=== PATIENT | female | born 1990 | race Caucasian/White ===

== ENCOUNTER → 2018-04-25 | Day surgery (SDC) | payer OTHER ==
[~2018-04-25] MED LIST: BUPIVACA 0.5%/EPI 0.0005%/PF 30 ML VIAL ONE; DEXAMETHASONE 10 MG/ML VIAL ONE; FENTANYL CITR 100 MCG/2 ML ONE; GLYCOPYRROLATE 0.2 MG/ML SYR ONE; HYDROCODONE/APAP 5/325 MG TAB ONE; KETOROLAC 30 MG/ML INJ ONE; MEPERIDINE HCL 25 MG/0.5 ML IV ONE; MEPERIDINE HCL 25 MG/0.5 ML ONE; METOCLOPRAMIDE 10 MG/2mL INJ ONE; NA CHLORIDE 0.9% 1,000 ML ONE; NEOSTIGMINE 1 MG/ML -5 ML SYRINGE ONE; ONDANSETRON 4 MG/2 ML VIAL IV ONE; ONDANSETRON 4 MG/2 ML VIAL ONE; ONDANSETRON HCL 40 MG/20 ML VIAL ONE; PIPER/TAZO/NS 3.375gm 3.375 GM/100 ML BAG ONE; PROMETHAZINE 25 MG/ML VIAL ONE; PROPOFOL 200 MG/20 ML VIAL IV ONE; ROCURONIUM 50 MG/5 ML VIAL IV ONE; Ringers Lactate 1,000 ML IV ONE
[2018-04-25 14:11] LABS: Absolute Lymphocytes (CBC) 1.7 K/uL (0.7-4.9); Absolute Monocytes 0.8 K/uL (0.1-1.3); Absolute Neutrophil 17.8 K/uL (1.8-8.0); Basophils % 0.2 % (0-1.3); Eosinophils % 0.1 % (0-4.4); Hematocrit 40.5 % (36.0-45.0); Lymphocytes % 8.4 % (15.3-44.8); MCH 26.4 pg (27.0-35.0); MCV 79.7 fL (80-100); MPV 8.1 fL (7.6-11.3); Monocytes % 4.1 % (3.3-12.3); RBC Red Blood Cell Count 5.09 M/uL (3.86-4.86)
[2018-04-25 14:20] LABS: ALT/SGPT 48 U/L (12-78); AST/SGOT 24 U/L (15-37); Albumin 3.9 g/dL (3.4-5.0); Alkaline Phosphatase 67 U/L (45-117); BUN Blood Urea Nitrogen 10 mg/dL (7-18); Bicarbonate 25 mmol/L (21-32); Bilirubin Direct < 0.1 mg/dL (0-0.2); Bilirubin Total 0.5 mg/dL (0.2-1.0); Glucose Level 111 mg/dL (74-106); Lipase 121 U/L (73-393); Protein, Total 8.3 g/dL (6.4-8.2); Sodium Level 137 mmol/L (136-145)
[2018-04-25 15:01] LABS: Urine Bacteria 20-50 /HPF (<20); Urine RBC <5 /HPF (NONE SEEN)
[2018-04-25 15:02] LABS: Urine Culture Reflex Order NOT NEEDED; Urine Mucus HEAVY /HPF (NONE SEEN)
--- NOTE | 2018-04-25 15:11 | RAD REPORT ---
EXAM DESCRIPTION: CTAbdomen Pelvis W Contrast - 04/25/2018 2:57 pm CLINICAL HISTORY: Abdominal pain. ABD PAIN COMPARISON: No comparisons TECHNIQUE: Biphasic CT imaging of the abdomen and pelvis was performed with 100 ml non-ionic IV cont rast. All CT scans are performed using dose optimization technique as appropriate and may include automated exposure control or mA/KV adjustment according to patient size. FINDINGS: The lung bases are clear. The liver, spleen, pancreas, adrenal glands and kidneys are within normal limits. No bowel obstruction, free air, free fluid or abscess. The appendix appears dilated and thickened in the RLQ measuring 12 mm with mild periappendiceal fat stranding. No evidence of significant lymphad enopathy. No suspicious bony findings. 3 cm right ovarian follicle seen. IMPRESSION: Acute appendicitis.
--- NOTE | 2018-04-25 15:32 | ER ---
Nurse's Notes [facility] Name: Luisa Agarwal Age: 27 yrs Sex: Female : 1990 Arrival Date: 04/25/2018 Time: 13:23 Bed 16 Private MD: out of town, doctor Diagnosis: Acute appendicitis Presentation: 04/25 13:25 Presenting complaint: Patient states: N/V, sweats and chills started about 0800 this 7 morning. Transition of care: patient was not received from another setting of care. Onset of symptoms was April 25, 2018 at 08:00. Risk Assessment: Do you want to hurt yourself or someone else? Patient reports no desire to harm self or others. Initial Sepsis Screen: Does the patient meet any 2 criteria? No. Patient's initial sepsis screen is negative. Does the patient have a suspected source of infection? No. Patient's initial sepsis screen is negative. Care prior to arrival: None. 13:25 Method Of Arrival: Ambulatory [facility] 13:25 Acuity: WAYNE 3 jl7 [employer]: 13:27 LMP 03/25/2018 [facility] Historical: - Allergies: 13:27 No Known Allergies; jl7 - Home Meds: 13:27 None [Active]; jl7 - PMHx: 13:27 None; jl7 - PSHx: 13:27 None; jl7 - Immunization history:: Adult Immunizations up to date. - Social history:: Smoking status: Patient/guardian denies using tobacco. - Ebola Screening: : No symptoms or risks identified at this time. Screenin:30 Abuse screen: Denies threats or abuse. Nutritional screening: No deficits noted. tw2 Tuberculosis screening: No symptoms or risk factors identified. Fall Risk None identified. Assessment: 13:30 General: Appears in no apparent distress. uncomfortable, Behavior is calm, cooperative, tw2 appropriate for age. Pain: Complains of pain in left lower quadrant and left upper quadrant and suprapubic area and umbilical area. Neuro: Level of Consciousness is awake, alert, obeys commands, Oriented to person, place, time, situation. Cardiovascular: Denies chest pain, shortness of breath, Heart tones S1 S2 Patient's skin is warm and dry. Respiratory: Airway is patent Respiratory effort is even, unlabored, Respiratory pattern is regular, symmetrical, Breath sounds are clear bilaterally. GI: No signs and/or symptoms were reported involving the gastrointestinal system. Bowel sounds present X 4 quads. Abd is soft Reports lower abdominal pain, upper abdominal pain, nausea, Patient currently denies diarrhea. : No signs and/or symptoms were reported regarding the genitourinary system. EENT: No signs and/or symptoms were reported regarding the EENT system. Derm: No signs and/or symptoms reported regarding the dermatologic system. Musculoskeletal: Range of motion: intact in all extremities. 14:43 Reassessment: Patient appears in no apparent distress at this time. Patient and/or tw2 family updated on plan of care and expected duration. Pain level reassessed. Patient is alert, oriented x 3, equal unlabored respirations, skin warm/dry/pink. Patient states feeling better. 15:20 Reassessment: Reassessment: Dr. Charles at bedside at this time. tw2 15:55 Reassessment: Patient appears in no apparent distress at this time. Patient and/or tw2 family updated on plan of care and expected duration. Pain level reassessed. Patient is alert, oriented x 3, equal unlabored respirations, skin warm/dry/pink. Vital Signs: 13:27 BP 128 / 86; Pulse 104; Resp 23; Temp 98.1; Pulse Ox 100% ; Weight 90.72 kg; Height 5 jl7 ft. 3 in. (160.02 cm); Pain 4/10; 14:42 BP 106 / 68; Pulse 109; Resp 17; Pulse Ox 98% on R/A; tw2 15:14 BP 120 / 81; Pulse 106; Resp 18; Pulse Ox 99% on R/A; Pain 0/10; tw2 15:49 BP 122 / 84; Pulse 109; Resp 18; Pulse Ox 99% on R/A; tw2 13:27 Body Mass Index 35.43 (90.72 kg, 160.02 cm) jl7 ED Course: 13:23 Patient arrived in ED. mr 13:23 out of town, doctor is Private Physician. mr 13:27 Triage completed. jl7 13:27 Arm band placed on right wrist. Patient placed in an exam room, on a stretcher. jl7 13:30 Kailee Rodriguez, ROHIT is Primary Nurse. tw2 13:30 Bed in low position. Call light in reach. Adult w/ patient. Pulse ox on. NIBP on. tw2 13:32 Eliezer Charles MD is Attending Physician. wa 13:51 Inserted saline lock: 22 gauge in left antecubital area, using aseptic technique. Blood tw2 collected. 14:18 Notified ED physician of a critical lab result(s). elevated WBC. sg 14:42 Urine Culture Sent. tw2 14:42 Urine Microscopic Only Sent. tw2 14:58 Abdomen In Process Unspecified. EDAZ 15:31 Darnell Gao MD is Hospitalizing Provider. wa 15:50 No provider procedures requiring assistance completed. Patient admitted, IV remains in tw2 place. Administered Medications: 13:58 Drug: NS 0.9% 1000 ml Route: IV; Rate: 1 bolus; Site: left antecubital; tw2 15:48 Follow up: Response: No adverse reaction; IV Status: Completed infusion; IV Intake: tw2 1000ml 13:59 Drug: Zofran 4 mg Route: IVP; Site: left antecubital; tw2 15:18 Follow up: Response: No adverse reaction tw2 14:39 Drug: TORadol 30 mg Route: IVP; Site: left antecubital; tw2 15:18 Follow up: Response: No adverse reaction; Pain is decreased tw2 15:30 Drug: Zosyn 3.375 grams Route: IVPB; Infused Over: 60 mins; Site: left antecubital; tw2 15:49 Follow up: IV Status: Infusion continued upon admission tw2 Intake: 15:48 IV: 1000ml; Total: 1000ml. tw2 Outcome: 15:31 Decision to Hospitalize by Provider. wa 15:54 Admitted to OR accompanied by nurse, via wheelchair, Report called to ROHIT Moran tw2 15:54 Condition: stable 15:54 Instructed on the need for admit. 15:55 Patient left the ED. tw2 Signatures: Dispatcher [employer] EDMS Tanmay Saunders RN ROHIT Taylor Gallegos mr Kailee Rodriguez RN RN 2 Mercedes Omer RN RN jl7 Eliezer Charles MD MD [place] Corrections: (The following items were deleted from the chart) 15:21 14:43 Reassessment: Patient appears in no apparent distress at this time. Patient tw2 and/or family updated on plan of care and expected duration. Pain level reassessed. Patient is alert, oriented x 3, equal unlabored respirations, skin warm/dry/pink. 15: 15:20 Reassessment:
--- NOTE | 2018-04-25 15:33 | EDPHYS ---
Physician Documentation [facility] Name: Luisa Agarwal Age: 27 yrs Sex: Female : 1990 Arrival Date: 04/25/2018 Time: 13:23 Bed 16 Private MD: out of town, doctor ED Physician Eliezer Charles HPI: 04/25 13:47 This 27 yrs old Female presents to ER via Ambulatory with complaints of wa Abdominal Pain, Vomiting. 13:47 The patient presents to the emergency department with nausea, vomiting, 2 times since wa the onset of symptoms, abdominal pain. Onset: The symptoms/episode began/occurred today. Possible causes: unknown. The symptoms are aggravated by nothing. The symptoms are alleviated by nothing. Associated signs and symptoms: Pertinent positives: abdominal pain, nausea, vomiting, Pertinent negatives: constipation, diarrhea, dysuria, fever, GI bleeding, hematuria, vaginal discharge. Severity of symptoms: At their worst the symptoms were moderate in the emergency department the symptoms have improved moderately. The patient has not experienced similar symptoms in the past. The patient has not recently seen a physician. 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 - Social history:: Smoking status: Patient/guardian denies using tobacco. - Ebola Screening: : No symptoms or risks identified at this time. ROS: 13:49 Constitutional: Negative for fever, chills, and weight loss, Eyes: Negative for injury, wa pain, redness, and discharge, ENT: Negative for injury, pain, and discharge, Neck: Negative for injury, pain, and swelling, Cardiovascular: Negative for chest pain, palpitations, and edema, Respiratory: Negative for shortness of breath, cough, wheezing, and pleuritic chest pain, Back: Negative for injury and pain, : Negative for injury, bleeding, discharge, and swelling, MS/Extremity: Negative for injury and deformity, Skin: Negative for injury, rash, and discoloration, Neuro: Negative for headache, weakness, numbness, tingling, and seizure, Psych: Negative for depression, anxiety, suicide ideation, homicidal ideation, and hallucinations. 13:49 Abdomen/GI: Positive for abdominal pain, nausea and vomiting. Exam: 13:48 Constitutional: This is a well developed, well nourished patient who is awake, alert, wa and in no acute distress. Head/Face: Normocephalic, atraumatic. Eyes: Pupils equal round and reactive to light, extra-ocular motions intact. Lids and lashes normal. Conjunctiva and sclera are non-icteric and not injected. Cornea within normal limits. Periorbital areas with no swelling, redness, or edema. ENT: Nares patent. No nasal discharge, no septal abnormalities noted. Tympanic membranes are normal and external auditory canals are clear. Oropharynx with no redness, swelling, or masses, exudates, or evidence of obstruction, uvula midline. Mucous membranes moist. Neck: Trachea midline, no thyromegaly or masses palpated, and no cervical lymphadenopathy. Supple, full range of motion without nuchal rigidity, or vertebral point tenderness. No Meningismus. Chest/axilla: Normal chest wall appearance and motion. Nontender with no deformity. No lesions are appreciated. Cardiovascular: Regular rate and rhythm with a normal S1 and S2. No gallops, murmurs, or rubs. Normal PMI, no JVD. No pulse deficits. Respiratory: Lungs have equal breath sounds bilaterally, clear to auscultation and percussion. No rales, rhonchi or wheezes noted. No increased work of breathing, no retractions or nasal flaring. Back: No spinal tenderness. No costovertebral tenderness. Full range of motion. Skin: Warm, dry with normal turgor. Normal color with no rashes, no lesions, and no evidence of cellulitis. MS/ Extremity: Pulses equal, no cyanosis. Neurovascular intact. Full, normal range of motion. Neuro: Awake and alert, GCS 15, oriented to person, place, time, and situation. Cranial nerves II-XII grossly intact. Motor strength 5/5 in all extremities. Sensory grossly intact. Cerebellar exam normal. Normal gait. Psych: Awake, alert, with orientation to person, place and time. Behavior, mood, and affect are within normal limits. 13:48 Abdomen/GI: Inspection: abdomen appears normal, Bowel sounds: normal, in all quadrants, Palpation: soft, in all quadrants, moderate abdominal tenderness, in the umbilical area, suprapubic area, right upper quadrant, left upper quadrant, right lower quadrant and left lower quadrant. Vital Signs: 13:27 BP 128 / 86; Pulse 104; Resp 23; Temp 98.1; Pulse Ox 100% ; Weight 90.72 kg; Height 5 jl7 ft. 3 in. (160.02 cm); Pain 4/10; 14:42 BP 106 / 68; Pulse 109; Resp 17; Pulse Ox 98% on R/A; tw2 15:14 BP 120 / 81; Pulse 106; Resp 18; Pulse Ox 99% on R/A; Pain 0/10; tw2 15:49 BP 122 / 84; Pulse 109; Resp 18; Pulse Ox 99% on R/A; tw2 13:27 Body Mass Index 35.43 (90.72 kg, 160.02 cm) jl7 MDM: 13:32 Patient medically screened. wa 13:50 Differential diagnosis: abd pain. acute, with assoc vomiting. will work up. will wa reassess. 15:29 Data reviewed: vital signs, nurses notes, lab test result(s), radiologic studies. Test wa interpretation: by ED physician or midlevel provider: labs noted for leukocytosis at 20K. CT abd/pelvis: noted for acute appendicitis. . Response to treatment: the patient's symptoms have markedly improved after treatment. Physician consultation: Darnell Gao MD was called at 15:30. Admission orders: after a detailed discussion of the patient's condition and case, the admit orders are written by me. ED course: received zosyn IV. NPO. acute appy. Dr. Gao to take to OR within the hour. pt and family advised. 04/25 13:47 Order name: Basic Metabolic Panel; Complete Time: 14:33 nh 04/25 13:47 Order name: CBC with Diff 04/25 13:47 Order name: Hepatic Function; Complete Time: 14:37 04/25 13:47 Order name: Lipase; Complete Time: 14:37 04/25 14:38 Order name: Urine Microscopic Only; Complete Time: 15:04 04/25 14:38 Order name: Urine Culture 04/25 14:51 Order name: Urine Dipstick--Ancillary (enter results) 04/25 14:51 Order name: Urine --Ancillary (enter results) 04/25 14:57 Order name: Abdomen ; Complete Time: 15:17 EDMS 04/25 13:47 Order name: IV Saline Lock; Complete Time: 13:51 wa 04/25 13:47 Order name: Labs collected and sent; Complete Time: 13:51 wa 04/25 13:47 Order name: Urine Test (obtain specimen); Complete Time: 14:40 wa 04/25 13:47 Order name: NPO; Complete Time: 13:51 nh 04/25 13:47 Order name: Urine Dipstick-Ancillary (obtain specimen); Complete Time: 14:40 wa Administered Medications: 13:58 Drug: NS 0.9% 1000 ml Route: IV; Rate: 1 bolus; Site: left antecubital; tw2 15:48 Follow up: Response: No adverse reaction; IV Status: Completed infusion; IV Intake: tw2 1000ml 13:59 Drug: Zofran 4 mg Route: IVP; Site: left antecubital; tw2 15:18 Follow up: Response: No adverse reaction tw2 14:39 Drug: TORadol 30 mg Route: IVP; Site: left antecubital; tw2 15:18 Follow up: Response: No adverse reaction; Pain is decreased tw2 15:30 Drug: Zosyn 3.375 grams Route: IVPB; Infused Over: 60 mins; Site: left antecubital; tw2 15:49 Follow up: IV Status: Infusion continued upon admission tw2 Disposition: 04/25/18 15:31 Hospitalization ordered by Darnell Gao for Observation. Preliminary diagnosis is Acute appendicitis. - Bed requested for Operating Room. - Status is Observation. tw2 - Condition is Stable. - Problem is new. - Symptoms have improved. UTI on Admission? No Signatures: Dispatcher [employer] EDMS Kailee Rodriguez RN RN tw2 Mercedes Omer RN RN jl7 Eliezer Charles MD MD [place] Corrections: (The following items were deleted from the chart) 14:57 13:48 Abdomen W/ Con+CT.RAD.BRZ ordered. EDTN EDMS 15:55 15:31 Hospitalization Ordered by Darnell Gao MD for Observation. Preliminary diagnosis tw2 is Acute appendicitis. Bed requested for Operating Room. Status is Observation. Condition is Stable. Problem is new. Symptoms have improved. UTI on Admission? No. wa
--- NOTE | 2018-04-25 17:14 | P.OP ---
Packaging Manager: Keenan Choi Preoperative diagnosis: Acute Appendicitis Postoperative diagnosis: Acute Appendicitis Primary procedure: Laparoscopic Appendectomy Anesthesia: GETA + Local Estimated blood loss: <5cc Specimen: Vermiform Appendix Findings: non-perforated appendicits, enlarged right ovary Complications: None Transferred to: Recovery Room Condition: Good
[2018-04-25 19:32] LABS: Urine Glucose NEGATIVE (NEG)
[2018-04-25 19:33] LABS: Urine Blood NEGATIVE (NEG); Urine Protein NEGATIVE (NEG)
[2018-04-25 20:07] LABS: Blood Morphology Comment NOT SEEN (NOT SEEN); Platelet Estimate ADEQ; Urine White Blood Cell Casts OK
--- NOTE | 2018-04-26 02:07 | OP ---
Date of Procedure: 04/25/2018 Surgeon: Darnell Gao MD, Ultrasound Coordinator: Ashlee Elizondo. Preoperative Diagnosis: Acute appendicitis. Postoperative Diagnosis: Acute appendicitis. Procedure Performed: Laparoscopic appendectomy. Anesthesia: General endotracheal plus local with Marcaine with epinephrine. Estimated Blood Loss: Less than 5 cc. Specimen: Vermiform appendix. Findings: Non-perforated acute appendicitis, enlarged right ovary. Complications: None. Disposition: Transferred to recovery room in good condition. Procedure In Detail: After informed consent was obtained, the patient was brought to the operating r oom, prepped and draped in the usual sterile fashion. After adequate anesthesia was achieved, an inf raumbilical area was anesthetized with Marcaine, sharply incised, and a 5-mm trocar was in troduced in the abdomen without evidence of complication. Insufflation was obtained to 15 mmHg at th is time. The area was inspected for injury to vital structures which was not appreciated at this taisha e. Additional trocar site was chosen in the suprapubic region. This was similarly anesthetized, sha rply incised. A 5-mm trocar was introduced in the abdomen without evidence of complication. The umb ilical trocar was then up-sized to a 12-mm under direct visualization without evidence of complicatio n. Additional trocar site was chosen in the left lower quadrant. This was similarly anesthetized, s harply incised. A 5-mm trocar was introduced in the abdomen without evidence of complication. The p atient was positioned head down, right side up position. Ratcheted grasper was used to grasp the pat ient's appendix and elevated. It was found to be acutely inflamed without evidence of perforation. The mesoappendiceal window was created with the [place] retractor at the confluence of the cecum. A n Endo CRYS 35 blue load was fired across the base of the appendix with good approximation of the tiss ues. The LigaSure device was then used to take the mesoappendix down with good hemostasis. The appe ndix was then placed in EndoCatch bag and removed through the umbilical trocar. Re-insufflation was obtained at this time. The area was inspected for proper hemostasis which was achieved at this time. There was no leakage from the staple line. The area was copiously irrigated, and the pelvis was co piously irrigated multiple times. The adnexa and uterus were both inspected at this time, and they h ave some mild inflammatory fluid present and the right ovary was slightly enlarged, but there were no obvious pathologic findings on the appearance. The abdomen was copiously irrigated multiple times a nd suctioned completely dry. The patient was positioned back in a neutral position and suctioned onc e again until completely dry. The umbilical trocar was then removed and the umbilical trocar site cl osed with a Kavin suture passer using 0 Vicryl in interrupted fashion with good approximati on of tissues. The abdomen was completely desufflated under direct visualization without evidence of complication. All trocars were then removed. All skin incisions were copiously irrigated and close d with a 4-0 Monocryl in a running fashion. Dermabond placed over the top. The patient tolerated th e procedure well without evidence of complication, transferred to the PACU in good condition. All co unts were correct at the end of the case. ANGELA/KATY Voice ID: [id number] Report ID: [id number]
--- NOTE | 2018-04-26 02:45 | HP ---
Date of Admission: 04/25/2018 Brief History Of Present Illness: The patient is a 27-year-old female who presents to the [facility] [place] with abdominal pain beginning earlier today. It was in the mid periumbilical area and now ra diated to the right lower quadrant. It was associated with nausea and vomiting and some chills and s ubjective fevers. She has no change in her bowel or bladder habits. She has never had similar episo zhanna before in the past. She is 3 months from a normal vaginal delivery with no complicati ons of . Her last menstrual period was 03/25/2018. Allergies: NO KNOWN DRUG ALLERGIES. Medications: None. Past Medical History: Negative. Past Surgical History: Negative. Social History: She denies smoking, alcohol, or recreational drug use. She stays at home and has 2 children. Family History: Reviewed, noncontributory. Physical Examination: General: At the time of my examination, she is awake, alert, and oriented. Psychiatric: She is appropriate, conversive. HEENT: She is normocephalic. Sclerae anicteric. Mucous membranes moist. Oropharynx clear. Neck: Supple. No JVD. Chest: Normal expansion, excursion. Cardiovascular: Regular rate and rhythm. Pulmonary: Clear to auscultation bilaterally. Abdomen: Soft with positive right lower quadrant tenderness to palpation. Positive focal peritoniti s. No rebound. No guarding. Extremities: No clubbing, cyanosis, or edema. Skin: Warm and dry. Pelvis: Stable. Laboratory Data: Laboratory exam reveals a white blood cell count of 20.4, hemoglobin is 13.4, hemat ocrit of 40.5, platelet count is 360, neutrophils 87%. Sodium 137, potassium 4.0, chloride 103, carb on dioxide 25, BUN 10, creatinine 0.7, glucose is 111, calcium 9.2, total bilirubin 0.5, direct compo nent 0.1, AST 24, ALT 48, alkaline phosphatase 67, lipase 121. UA shows 5 to 10 white blood cells an d 20 to 50 squamous cells and 20 to 50 bacteria, heavily loaded mucus. CT scan shows official dictat ion of acute appendicitis. The appendix appears thickened and dilated and the right lower quadrant m easuring 12 mm with periappendiceal fat stranding. No evidence of significant lymphadenopathy and co nsistent with an acute appendicitis. Assessment And Plan: A 27-year-old female who presents with signs and symptoms of acute appendicitis with nonperforated appearance: 1.IV fluid hydration. 2.Antibiotic coverage. 3.I have explained the risks, benefits, and alternatives of laparoscopic possible open appendectomy including, but not limited to bleeding, infection, damage to surrounding tissue, need for further ope rating procedures. The patient agreed to proceed as indicated. ANGELA/KATY Voice ID: [id number]
== END | disposition home or self-care (01) ==
LOC: ER 13:21 → OR 15:55
PROVIDERS: ATTEND Surgery
PROC: 0DTJ4ZZ Resection of Appendix, Percutaneous Endoscopic Approach (ICD-10-PCS; principal; 2018-04-25 16:00)
DX: K35.80 Unspecified acute appendicitis (principal)
CPT/HCPCS: 36415; 74177; 80048; 80076; 81003; 81015; 81025; 83690; 85025; 87086; 87088; 88304; 96361; 96365; 96375; 99285; J1100; J2175; J2405; J2543; J2550; J2704; J2710; J2765; J3010; J7030; Q9967

== ENCOUNTER 2018-04-27 21:04 | Emergency (ER) | payer OTHER ==
[2018-04-27] MEDS ORDERED: ONDANSETRON 4 MG/2 ML VIAL ONE (22:06)
[2018-04-27 22:16] LABS: Absolute Lymphocytes (CBC) 5.3 K/uL (0.7-4.9); Absolute Monocytes 0.4 K/uL (0.1-1.3); Absolute Neutrophil 3.8 K/uL (1.8-8.0); Basophils % 0.4 % (0-1.3); Hematocrit 35.3 % (36.0-45.0); MCH 26.8 pg (27.0-35.0); MCV 81.3 fL (80-100); MPV 7.7 fL (7.6-11.3); Monocytes % 4.3 % (3.3-12.3); RBC Red Blood Cell Count 4.34 M/uL (3.86-4.86)
[2018-04-27 22:23] LABS: ALT/SGPT 38 U/L (12-78); AST/SGOT 16 U/L (15-37); Albumin 3.3 g/dL (3.4-5.0); Alkaline Phosphatase 54 U/L (45-117); BUN Blood Urea Nitrogen 11 mg/dL (7-18); Bicarbonate 28 mmol/L (21-32); Bilirubin Total 0.1 mg/dL (0.2-1.0); Glucose Level 115 mg/dL (74-106); Lipase 129 U/L (73-393); Potassium 3.2 mmol/L (3.5-5.1); Sodium Level 140 mmol/L (136-145)
[2018-04-27 22:48] LABS: Blood Morphology Comment NOT SEEN (NOT SEEN); Platelet Estimate ADEQ
--- NOTE | 2018-04-27 23:02 | EDPHYS ---
Physician Documentation [facility] Name: Luisa Agarwal Age: 27 yrs Sex: Female : 1990 Arrival Date: 04/27/2018 Time: 21:06 Bed 17 Private MD: BELINDA DAO ED Physician Satya Morrison HPI: 04/27 22:57 This 27 yrs old Female presents to ER via Ambulatory with complaints of ps1 Vomiting, Post Surgical Pain. 22:57 patient is s/p lap appy by Sima this Tuesday. Patient had some non-specific ps1 abdominal pain and an incident of vomiting. Pain rated as mild. Non-radiating. No fever. Has had some spotting/VB.. 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 - Social history:: Smoking status: Patient/guardian denies using tobacco, Patient uses alcohol, occasionally. - Ebola Screening: : Patient negative for fever greater than or equal to 101.5 degrees Fahrenheit, and additional compatible Ebola Virus Disease symptoms Patient denies exposure to infectious person Patient denies travel to an Ebola-affected area in the 21 days before illness onset No symptoms or risks identified at this time. ROS: 22:57 Constitutional: Negative for fever, chills, and weight loss, Eyes: Negative for injury, ps1 pain, redness, and discharge, Cardiovascular: Negative for chest pain, palpitations, and edema, Respiratory: Negative for shortness of breath, cough, wheezing, and pleuritic chest pain, MS/Extremity: Negative for injury and deformity, Skin: Negative for injury, rash, and discoloration, Neuro: Negative for headache, weakness, numbness, tingling, and seizure. 22:57 Abdomen/GI: Positive for abdominal pain, nausea and vomiting. Exam: 22:57 Constitutional: This is a well developed, well nourished patient who is awake, alert, ps1 and in no acute distress. Head/Face: Normocephalic, atraumatic. Eyes: Pupils equal round and reactive to light, extra-ocular motions intact. Lids and lashes normal. Conjunctiva and sclera are non-icteric and not injected. Cardiovascular: Regular rate and rhythm. No gallops, murmurs, or rubs. Normal PMI, no JVD. No pulse deficits. Respiratory: Lungs have equal breath sounds bilaterally, clear to auscultation and percussion. No rales, rhonchi or wheezes noted. No increased work of breathing, no retractions or nasal flaring. Skin: Warm, dry with normal turgor. Normal color with no rashes, no lesions, and no evidence of cellulitis. MS/ Extremity: Pulses equal, no cyanosis. Neurovascular intact. Full, normal range of motion. Neuro: Awake and alert, GCS 15, oriented to person, place, time, and situation. Cranial nerves II-XII grossly intact. Sensory grossly intact. 22:57 Abdomen/GI: Inspection: abdomen appears normal, scar(s), are noted in the suprapubic area, right lower quadrant and left lower quadrant, c/w recent laproscopy. CDI, Bowel sounds: normal, Palpation: abdomen is soft and non-tender. Vital Signs: 21:09 BP 127 / 85; Pulse 83; Resp 17; Temp 97.9; Pulse Ox 99% on R/A; Weight 90.72 kg; Height aj 5 ft. 3 in. (160.02 cm); 22:32 BP 127 / 86; Pulse 73; Resp 17 S; Pulse Ox 99% on R/A; jd3 21:09 Body Mass Index 35.43 (90.72 kg, 160.02 cm) aj MDM: 21:23 Patient medically screened. ps1 22:57 Data reviewed: vital signs, nurses notes, lab test result(s), radiologic studies, CT ps1 scan, d/w angelitoev, rec's home with levaquin and flagyl. , and as a result, I will discharge patient. 04/27 21:41 Order name: CBC with Diff; Complete Time: 22:54 ps1 04/27 21:41 Order name: Creatinine for Radiology; Complete Time: 22:22 ps1 04/27 21:41 Order name: Lipase; Complete Time: 22:24 ps1 04/27 21:41 Order name: Lactate; Complete Time: 22:24 ps1 04/27 21:41 Order name: CMP; Complete Time: 22:24 ps1 04/27 22:21 Order name: Urine Dipstick--Ancillary (enter results); Complete Time: 23:08 ms 04/27 21:41 Order name: IV Saline Lock; Complete Time: 21:57 ps1 04/27 21:41 Order name: Labs collected and sent; Complete Time: 21:57 ps1 04/27 21:41 Order name: CT Abd/Pelvis - W/Contrast ps1 04/27 22:21 Order name: Urine --Ancillary (enter results); Complete Time: 23:08 ms 04/27 22:22 Order name: Manual Differential; Complete Time: 22:54 EDMS 04/27 22:48 Order name: Slides for Pathologist Review EDMS Administered Medications: 22:28 Drug: Zofran 4 mg Route: IVP; Site: right antecubital; bb 23:11 Follow up: Response: No adverse reaction; Nausea is decreased jd3 Disposition: 04/27/18 23:02 Discharged to Home. Impression: Post operative wound check, Post operative pain. - Condition is Stable. - Discharge Instructions: Pain Relief Preoperatively and Postoperatively. - Prescriptions for Flagyl 500 mg Oral Tablet - take 1 tablet by ORAL route every 12 hours for 7 days; 14 tablet. Levaquin 750 mg Oral Tablet - take 1 tablet by ORAL route once daily for 7 days; 7 tablet. Zofran 4 mg Oral Tablet - take 1 tablet by ORAL route every 12 hours As needed; 20 tablet. - Medication Reconciliation Form, Thank You Letter, Antibiotic Education, Prescription Opioid Use form. - Follow up: Darnell Gao MD; When: 1 week; Reason: Further diagnostic work-up, Recheck today's complaints, Continuance of care, Re-evaluation by your physician. Follow up: Emergency Department; When: As needed; Reason: Fever > 102 F, Worsening of condition. - Problem is new. - Symptoms have improved. Signatures: Dispatcher [employer] EDIra Guzmán RN RN aj Ballard, Brenda, RN RN bb Davies, Jonathon, RN RN jd3 Singer, Phillip, MD MD ps1 Corrections: (The following items were deleted from the chart) 23:10 23:02 04/27/2018 23:02 Discharged to Home. Impression: Post operative wound check; Post jd3 operative pain. Condition is Stable. Forms are Medication Reconciliation Form, Thank You Letter, Antibiotic Education, Prescription Opioid Use. Follow up: Darnell Gao; When: 1 week; Reason: Further diagnostic work-up, Recheck today's complaints, Continuance of care, Re-evaluation by your physician. Follow up: Emergency Department; When: As needed; Reason: Fever > 102 F, Worsening of condition. Problem is new. Symptoms have improved. ps1
--- NOTE | 2018-04-27 23:02 | ER ---
Nurse's Notes [facility] Name: Luisa Agarwal Age: 27 yrs Sex: Female : 1990 Arrival Date: 04/27/2018 Time: 21:06 Bed 17 Private MD: BELINDA DAO Diagnosis: Post operative wound check;Post operative pain Presentation: 04/27 21:08 Presenting complaint: Patient states: Vomiting x 1 episode with abdominal soreness and aj bloating sensation, S/P appendectomy on 04/25. Patient also reports blood tinged vaginal discahrge. Transition of care: patient was not received from another setting of care. Onset of symptoms was April 27, 2018. Risk Assessment: Do you want to hurt yourself or someone else? Patient reports no desire to harm self or others. Initial Sepsis Screen: Does the patient meet any 2 criteria? No. Patient's initial sepsis screen is negative. Does the patient have a suspected source of infection? No. Patient's initial sepsis screen is negative. Care prior to arrival: None. 21:08 Method Of Arrival: Ambulatory aj 21:08 Acuity: WAYNE 3 aj Triage Assessment: 21:09 General: Appears in no apparent distress. comfortable, Behavior is calm, cooperative, aj appropriate for age. Pain: Complains of pain in abdomen. Neuro: Level of Consciousness is awake, alert, obeys commands, Oriented to person, place, time, situation, Appropriate for age. Respiratory: Airway is patent Respiratory effort is even, unlabored, Respiratory pattern is regular, symmetrical. GI: Reports lower abdominal pain, upper abdominal pain, nausea, vomiting. : Reports vaginal bleeding that is spotty. Derm: Skin is intact, is healthy with good turgor, Skin is pink, warm \T\ dry. normal. 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 - Social history:: Smoking status: Patient/guardian denies using tobacco, Patient uses alcohol, occasionally. - Ebola Screening: : Patient negative for fever greater than or equal to 101.5 degrees Fahrenheit, and additional compatible Ebola Virus Disease symptoms Patient denies exposure to infectious person Patient denies travel to an Ebola-affected area in the 21 days before illness onset No symptoms or risks identified at this time. Screenin:12 Abuse screen: Denies threats or abuse. Nutritional screening: No deficits noted. jd3 Tuberculosis screening: No symptoms or risk factors identified. Fall Risk Ambulatory Aid- None/Bed Rest/Nurse Assist (0 pts). Gait- Normal/Bed Rest/Wheelchair (0 pts) Mental Status- Oriented to own ability (0 pts). Total Shah Fall Scale indicates No Risk (0-24 pts). Assessment: 21:28 General: Appears in no apparent distress. uncomfortable, Behavior is calm, cooperative, jd3 appropriate for age. Pain: Complains of pain in right upper quadrant and right lower quadrant Quality of pain is described as aching, tender. Neuro: Level of Consciousness is awake, alert, obeys commands, Oriented to person, place, time, situation, Appropriate for age. Cardiovascular: Capillary refill < 3 seconds Patient's skin is warm and dry. Respiratory: Airway is patent Respiratory effort is even, unlabored, Respiratory pattern is regular, symmetrical. GI: Abdomen is round Bowel sounds present X 4 quads. Abd is soft X 4 quads Abdomen is tender to palpation in right upper quadrant and right lower quadrant Reports nausea, vomiting, pt reports not having bowel movement since surgery. : No signs and/or symptoms were reported regarding the genitourinary system. EENT: No signs and/or symptoms were reported regarding the EENT system. Derm: Skin is intact, Skin is dry, Skin is normal, Skin temperature is warm. Musculoskeletal: Circulation, motion, and sensation intact. Range of motion: intact in all extremities. 22:32 Reassessment: Patient appears in no apparent distress at this time. No changes from jd3 previously documented assessment. Patient and/or family updated on plan of care and expected duration. Pain level reassessed. Patient is alert, oriented x 3, equal unlabored respirations, skin warm/dry/pink. 23:09 Reassessment: Patient appears in no apparent distress at this time. No changes from jd3 previously documented assessment. Patient and/or family updated on plan of care and expected duration. Pain level reassessed. Patient is alert, oriented x 3, equal unlabored respirations, skin warm/dry/pink. pt reported understanding of discharge instructions, even and steady gait upon discharge. Vital Signs: 21:09 BP 127 / 85; Pulse 83; Resp 17; Temp 97.9; Pulse Ox 99% on R/A; Weight 90.72 kg; Height aj 5 ft. 3 in. (160.02 cm); 22:32 BP 127 / 86; Pulse 73; Resp 17 S; Pulse Ox 99% on R/A; jd3 21:09 Body Mass Index 35.43 (90.72 kg, 160.02 cm) aj ED Course: 21:06 Patient arrived in ED. ds1 21:06 BELINDA DAO is Private Physician. ds1 21:09 Triage completed. aj 21:09 Arm band placed on right wrist. Patient placed in an exam room. aj 21:12 Psacual Tipton, RN is Primary Nurse. jd3 21:12 Patient has correct armband on for positive identification. Bed in low position. Call jd3 light in reach. Side rails up X 1. Adult w/ patient. 21:18 Satya Morrison MD is Attending Physician. ps1 21:53 Inserted saline lock: 20 gauge in right antecubital area, using aseptic technique. jd3 Blood collected. 22:11 CT Abd/Pelvis - W/Contrast In Process Unspecified. EDMS 23:00 Darnell Gao MD is Referral Physician. ps1 23:10 No provider procedures requiring assistance completed. IV discontinued, intact, jd3 bleeding controlled, No redness/swelling at site. Pressure dressing applied. Administered Medications: 22:28 Drug: Zofran 4 mg Route: IVP; Site: right antecubital; bb 23:11 Follow up: Response: No adverse reaction; Nausea is decreased jd3 Outcome: 23:02 Discharge ordered by . ps1 23:10 Discharged to home ambulatory, with family. jd3 23:10 Condition: stable 23:10 Discharge instructions given to patient, family, Instructed on discharge instructions, follow up and referral plans. medication usage, Demonstrated understanding of instructions, follow-up care, medications, Prescriptions given X 3. 23:10 Patient left the ED. jd3 Signatures: Dispatcher [employer] EDGA Ira Carreno RN RN aj Sanford, Demi ds1 Elza Reis RN RN bb Davies, Jonathon, RN RN jd3 Satya Morrison MD MD ps1
[2018-04-27 23:04] LABS: Urine Blood TRACE (NEG); Urine Glucose NEGATIVE (NEG); Urine Protein NEGATIVE (NEG)
--- NOTE | 2018-04-28 07:39 | RAD REPORT ---
EXAM DESCRIPTION: CT - Abdomen Pelvis W Contrast - 04/28/2018 4:40 am CLINICAL HISTORY: Abdominal pain, vomiting, appendectomy on April 25, patient history of blood tin ged vaginal discharge A preliminary report was provided at the time of the study and reviewed prior to final report. COMPARISON: CT imaging April 25 TECHNIQUE: Biphasic, helical CT imaging of the abdomen and pelvis was performed following 100 ml non -ionic IV contrast. No oral contrast administered. All CT scans are performed using dose optimization technique as appropriate and may include automated exposure control or mA/KV adjustment according to patient size. FINDINGS: No suspicious findings in the lung bases. The liver, spleen, and pancreas show no suspicious findings. Gallbladder and biliary tree are also wi thout suspicious finding. Symmetric renal function is seen with no hydronephrosis or suspicious renal mass. No pyelonephritis o r acute renal parenchymal process. Mostly contracted urinary bladder shows no acute finding. No gastric dilatation or wall thickening. Fluid is present filling but not distending the gastric lum en. No abnormal small bowel finding. Appendectomy clips are present. A few small reactive type lymph nodes are seen near the tip of the cecum. No obstruction, abscess, abnormal free air or other surgical complication. Trace amount of intraperit caceres free air and fluid are present, and there is a trace amount of air and soft tissue stranding in the periumbilical subcutaneous fatty tissues. These are findings all well within normal limits for r ecent surgery. No abnormal inflammatory stranding. No hernia, mass or bulky lymphadenopathy. No uter us or left ovary abnormality. Right ovary contains a 3.8 centimeter cyst. This has not changed in siz e since April 25 (different measuring techniques utilized between the 2 studies). No vaginal abnorm ality on CT imaging. No stranding or edema in the fat of the perineum. No adrenal abnormality. No suspicious bony findings. IMPRESSION: Appendectomy clips are present and there are the expected postsurgical changes related t o recent appendectomy. No abscess, free air or significant finding. Approximately 3.8 cm right ovarian cyst present stable from April 25.
== END 2018-04-27 23:10 | disposition home or self-care (01) ==
LOC: ER 21:04
DX: Z48.01 Encounter for change or removal of surgical wound dressing (principal); Z98.890 Other specified postprocedural states
CPT/HCPCS: 36415; 74177; 80053; 81003; 81025; 83605; 83690; 85025; 96374; 99284; J2405; Q9967